=== PATIENT | female | born 1985 | race African-American/Black ===

== ENCOUNTER → 2019-10-07 | Emergency (ER) | payer MEDICAID, OTHER ==
[~2019-10-07] VITALS: Ht 170.2 cm; Wt 63.5 kg
[~2019-10-07] MED LIST: ASPirin 81 mg TAB PO ONE
[2019-10-07 13:09] LABS: Amphetamine Screen, Urine NEGATIVE (NEGATIVE); Barbiturate Scree,Urine NEGATIVE (NEGATIVE); Benzodiazephine Screen, Urine NEGATIVE (NEGATIVE); Cannabinoid Screen, Urine NEGATIVE (NEGATIVE); Cocaine Screen, Urine NEGATIVE (NEGATIVE); Opiate Scree,Urine NEGATIVE (NEGATIVE); Phencyclidine Screen, Urine NEGATIVE (NEGATIVE)
[2019-10-07 13:11] VITALS: BP 106/66
[2019-10-07 13:17] LABS: Urine Bacteria FEW /hpf (None Seen); Urine Blood Negative /uL (Negative); Urine Hyaline Cast FEW /lpf (0 - 2); Urine Mucus FEW (None Seen); Urine WBC 26 /hpf (0 - 5)
[2019-10-07 13:20] LABS: Alcohol, Urine < 3.0 mg/dL (0-10)
[2019-10-07 13:37] LABS: Basophils # (auto) 0 10 ^3/uL (0-0.2); Basophils % (auto) 0.6 % (0.0-2.0); Eosinophils # (auto) 0.1 10 ^3/uL (0-0.8); Eosinophils % (auto) 2.1 % (0.0-7.0); Hemoglobin 14.7 g/dL (12.2-16.2); Lymphocytes % (auto) 44.1 % (10.0-50.0); Mean Corpuscular Hemoglobin 31.3 pg (28.0-32.0); Mean Corpuscular Hgb Conc. 33.4 g/dL (32.0-36.0); Mean Corpuscular Volume 93.5 fL (80.0-100.0); Monocytes # (auto) 0.5 10 ^3/uL (0-1.3); Monocytes % (auto) 12.2 % (0.0-12.0); Neutrophils # (auto) 1.8 10 ^3/uL (1.6-8.6); Nucleated Red Blood Cells % 0.1 %; Platelet Count (auto) 266 10^3/uL (140-450); Red Cell Distribution Width 12.7 % (11.8-14.3); White Blood Cell 4.5 10^3/uL (4.4-10.8)
[2019-10-07 13:52] LABS: Albumin 3.8 g/dL (3.4-5.0); Anion Gap 4 (5-15); Blood Urea Nitrogen 12 mg/dL (7-18); Calcium 8.6 mg/dL (8.5-10.1); Carbon Dioxide 25 mmol/L (21-32); Chloride 110 mmol/L (98-107); Glucose 80 mg/dL (74-106); Potassium 3.9 mmol/L (3.5-5.1); Sodium 139 mmol/L (136-145)
[2019-10-07 13:58] LABS: Alanine Aminotransferase 20 U/L (13-56); Alkaline Phosphatase 68 U/L (45-117); Aspartate Aminotransferase 13 U/L (15-37); BUN/Creatinine Ratio 14.8; Bilirubin, Total 0.3 mg/dL (0.2-1.0); GFR African American 105 mL/min; GFR Non-African American 87 mL/min; Total Protein 7.1 g/dL (6.4-8.2)
== END | disposition home or self-care (01) ==
LOC: ER 12:10
DX: K29.70 Gastritis, unspecified, without bleeding (principal); N39.0 Urinary tract infection, site not specified; R07.9 Chest pain, unspecified; K21.9 Gastro-esophageal reflux disease without esophagitis; F17.210 Nicotine dependence, cigarettes, uncomplicated
CPT/HCPCS: 36415; 71046; 80053; 80307; 81001; 84484; 85025; 85379; 93005

== ENCOUNTER 2023-10-31 17:40 | Emergency (ER) | payer MEDICAID, OTHER ==
[~2023-10-31] VITALS: Ht 170.2 cm; Wt 98.1 kg
[2023-10-31] MEDS: ACETAMINOPHEN 325 MG TAB PO ONE (19:30)
[2023-10-31 19:33] VITALS: BP 112/64; PULSE 68; RESP 17; TEMP 98.5; O2SAT 99
== END 2023-10-31 19:39 | disposition home or self-care (01) ==
LOC: ER 17:40
DX: G56.02 Carpal tunnel syndrome, left upper limb (principal); M77.9 Enthesopathy, unspecified
CPT/HCPCS: 29125

== ENCOUNTER 2024-03-24 10:49 | Emergency (ER) | payer MEDICAID ==
[~2024-03-24] VITALS: Ht 170.2 cm; Wt 98.8 kg
--- NOTE | 2024-03-24 11:58 | DVH ---
PROCEDURE: Left knee radiographs. INDICATION: FALL TECHNIQUE: 3 views of the left knee were obtained. COMPARISON: None FINDINGS: There is no evidence of fracture or dislocation. Joint spaces are maintained. The soft tis sues are unremarkable. IMPRESSION: 1. No fracture or dislocation.
--- NOTE | 2024-03-24 12:01 | DVH ---
CLINICAL INDICATION: Trauma, pain FALL TECHNIQUE: XY R ANKLE 3 VIEW Comparison: None FINDINGS/IMPRESSION: : Minimally displaced fracture of the distal tibia/ medial malleolus. Subcentimeter ossific density at the lateral process of the talus suggestive of a subtle avulsion inj ury. Ossific density is present at the dorsal aspect of the navicular seen on lateral view only suggestive of an age indeterminate fracture. Nonemergent MRI can be obtained to further evaluate if clinically indicated. Ankle mortise intact.
[2024-03-24 12:34] VITALS: BP 102/69; PULSE 75; RESP 16; TEMP 98; O2SAT 97
--- NOTE | 2024-03-24 13:20 | ED.PDOC ---
Musculoskeletal HPI Comments A 39 YEAR OLD FEMALE PRESENTS TO THE ED WITH COMPLAINT OF LEFT KNEE PAIN RIGHT ANKLE PAIN STATUS POST FALL. PATIENT STATES SHE ACCIDENTALLY FELL AND TWISTED HER RIGHT ANKLE AND HIT HER LEFT KNEE 2 DAYS AGO. PATIENT REPORTS SHE IS NOW EXPERIENCING RIGHT ANKLE PAIN WITH SWELLING AND LEFT KNEE PAIN THAT IS WORSE WITH MOVEMENT. PATIENT DENIES HEAD INJURY, NECK INJURY, LOC, FEVER, CHILLS, SHORTNESS OF BREATH, CHEST PAIN, ABDOMINAL PAIN, NAUSEA, VOMITING, HEADACHE, OR OTHER COMPLAINTS. NO OTHER SYMPTOMS OR MODIFYING FACTORS AT THIS TIME. PATIENT IS ALERT, ORIENTED X 4, AND HAS STEADY GAIT. Chief Complaint: Lower Extremity Time Seen by MD: 11:17 Primary Care Provider: [facility] Reviewed Notes: Nurses Notes, Medications, Allergies Allergies: Coded Allergies: NO KNOWN ALLERGIES (Unverified , 10/07/19) Home Meds Active Scripts Acetaminophen (Tylenol Extra Strength Fo) 500 Mg Tab, 1000 MG PO BID, #30 TAB Prov:KIKEABDIRASHID Stack 03/24/24 Information Source: Patient Mode of Arrival: Ambulatory Location: Left, Right Extremity Location: Ankle (RIGHT ANKLE), Knee (LEFT KNEE) Timing: Days Prehospital treatment: None Severity: Moderate Able to Move Extremity: Yes Bear Weight: Fully Pain: Moderate Mechanism: Twisting Circumstances: Fall Onset of Symptoms: After Trauma Symptoms: Swelling, Pain DVT Risk Factors: NONE Last Tetanus: Unknown Associated signs and symptoms: Knee pain, Ankle pain Past Medical History PAST MEDICAL HISTORY: GERD Surgical History: Denies all surgeries TECHNOLOGY INFUSION SPECIALIST History: No Pertinent TECHNOLOGY INFUSION SPECIALIST History Family History Family History: Reviewed,noncontributory to illness, Family hx of DM, Family hx of Cancer, Family hx of HTN Social History Smoker: Cigarettes Alcohol: Denies ETOH Use Drugs: Denies Drug Use Lives In: Home Constitutional: denies: chills, diaphoresis, fatigue, fever, malaise, sweats, weakness, others EENTM: denies: blurred vision, double vision, ear bleeding, ear discharge, ear drainage, ear pain, ear ringing, eye pain, eye redness, hearing loss, mouth pain, mouth swelling, nasal discharge, nose bleeding, nose congestion, nose pain, photophobia, tearing, throat pain, throat swelling, voice changes, others Respiratory: denies: cough, hemoptysis, orthopnea, SOB at rest, shortness of breath, SOB with excertion, stridor, wheezing, others Cardiovascular: denies: chest pain, dizzy spells, diaphoresis, Dyspnea on exertion, edema, irregular heart beat, left arm pain, lightheadedness, palpitat ions, PND, syncope, others Gastrointestinal: denies: abdomen distended, abdominal pain, blood streaked bow els, constipated, diarrhea, dysphagia, difficulty swallowing, hematemesis, melena, nausea, poor appetite, poor fluid intake, rectal bleeding, rectal pain, vomiting, others Genitourinary: denies: abnormal vagina bleeding, burning, dyspareunia, dysuria, flank pain, frequency, hematuria, incontinence, pain, , vagina discharge, urgency, others Neurological: denies: dizziness, fainting, headache, left sided numbness, left sided weakness, numbness, paresthesia, pre-existing deficit, right sided numbness, right sided weakness, seizure, speech problems, tingling, tremors, weakness, others Musculoskeletal: reports: joint pain, joint swelling, others (RIGHT ANKLE PAIN AND SWELLING, LEFT KNEE PAIN); denies: back pain, gout, muscle pain, muscle stiffness, neck pain Integumetry: denies: bruises, change in color, change in hair/nails, dryness, laceration, lesions, lumps, rash, wounds, others Allergic/Immunocompromised: denies: Difficulty Healing, Frequent Infections, Hives, Itching, others Hematologic/Lymphatic: denies: anemia, blood clots, easy bleeding, easy bruising, swollen glands, others Endocrine: denies: excessive hunger, excessive sweating, excessive thirst, excessive urination, flushing, intolerance to cold, intolerance to heat, unexplained weight gain, unexplained weight loss, others Psychiatric: denies: anxiety, bipolar disorder, depression, hopeless, panic disorder, schizophrenia, sleepless, suicidal, others All Other Systems: Reviewed and Negative Physical Exam General Appearance: No Apparent Distress, Obese HEENT: Normal ENT Inspection, PERRL/EOMI, Pharynx Normal, TMs Normal Neck: Full Range of Motion, Non-Tender, Normal, Normal Inspection Respiratory: Chest Non-Tender, Lungs Clear, No Accessory Muscle Use, No Respiratory Distress, Normal Breath Sounds Cardiovascular: No Edema, No JVD, No Murmur, No Gallop, Normal Peripheral Pulses, Regular Rate/Rhythm Breast Exam: Deferred Gastrointestinal: No Organomegaly, Non Tender, No Pulsatile Mass, Normal Bowel Sounds, Soft Genitalia: Deferred Pelvic: Deferred Rectal: Deferred Extremities: Decreased range of motion, No calf tenderness, Normal capillary refill, No pedal edema, Swelling (BONY TENDERNESS AND SWELLING ON RIGHT ANKLE, NO DEFORMITY. ), Tender (ON LEFT KNEE, NO BONY TENDERNESS, SWELLING AND DEFORMITY. ) Musculoskeletal : Apperance: Normal Neurologic: Alert, sack keeper II-XII nml as Tested, No Motor Deficits, Normal Affect, Normal Mood, No Sensory Deficits Cerebellar Function: Normal Reflexes: Normal Skin: Dry, Normal Color, Warm Peripheral Pulses: 2+ carotid (R), 2+ carotid (L), 2+ dorsalis pedis (R), 2+ dorsalis pedis (L) Lymphatic: No Adenopathy Was a procedure done? Was a procedure done?: No Differential Diagnosis EXT Differential Diagnosis: Fracture, Sprain, Dislocation, Contusion, Strain, Bursitis X-Ray, Labs, Meds, VS Vital Signs Date Time Temp Pulse Resp B/P (MAP) Pulse Ox O2 Delivery O2 Flow Rate FiO2 03/24/24 12:34 98.0 75 16 102/69 (80) 97 98.0 03/24/24 12:34 75 16 97 Room Air 03/24/24 11:11 98.0 75 16 102/69 (80) 97 Current Medications Medications (Trade) Dose Ordered Sig/Liam Route Start Time Stop Time Status Last Admin Acetaminophen (Tylenol Tablet Or Capsule) 1,000 mg ONCE ONCE PO 03/24/24 13:30 03/24/24 13:33 DC 03/24/24 13:31 PROCEDURE: Left knee radiographs. INDICATION: FALL TECHNIQUE: 3 views of the left knee were obtained. COMPARISON: None FINDINGS: There is no evidence of fracture or dislocation. Joint spaces are maintained. The soft tissues are unremarkable. IMPRESSION: 1. No fracture or dislocation. ATED BY: CHARISSE ALMEIDA MD DICTATED DATE/TIME: 03/24/241155 SIGNED BY: CHARISSE ALMEIDA MD SIGNED DATE/TIME: 03/24/241155 CC: CLINICAL INDICATION: Trauma, pain FALL TECHNIQUE: XY R ANKLE 3 VIEW Comparison: None FINDINGS/IMPRESSION: : Minimally displaced fracture of the distal tibia/ medial malleolus. Subcentimeter ossific density at the lateral process of the talus suggestive of a subtle avulsion injury. Ossific density is present at the dorsal aspect of the navicular seen on lateral view only suggestive of an age indeterminate fracture. Nonemergent MRI can be obtained to further evaluate if clinically indicated. Ankle mortise intact. ATED BY: GERRY BERGER MD DICTATED DATE/TIME: 03/24/24 115 SIGNED BY: GERRY BERGER MD SIGNED DATE/TIME: 03/24/24 115 CC: X-Ray, Labs, Meds, VS Comment EXTERNAL MEDICAL RECORDS REVIEWED: [NONE] INDEPENDENT HISTORIANS: [NONE] SOCIAL DETERMINANTS OF HEALTH: [NONE] LABS ORDERED: NONE REVIEWED AND INTERPRETED RESULTS: NONE IMAGING ORDERED: XR KNEE LT, XR ANKLE LT TREATMENTS ORDERED: ANKLE STIRRUP SPLINT APPLIED TO PATIENT'S LEFT ANKLE. CRUTCHES GIVEN. TYLENOL 1GM PO PROCEDURES PERFORMED: NONE CRITICAL CARE TIME: NONE I HAVE DISCUSSED THE PATIENT WITH THE ATTENDING PHYSICIAN DR. MA AND HE AGREES WITH THE PATIENT'S PLAN OF CARE AND DISPOSITION. BASED ON HISTORY OF PRESENT ILLNESS, AND PHYSICAL EXAM, PATIENT WILL BE DISCHARGED HOME. DISCUSSED PLAN FOR DISCHARGE HOME WITH RX [IBUPROFEN 800 MG]. MEDICATION WARNINGS GIVEN. SHARED DECISION MAKING: PATIENT INSTRUCTED TO FOLLOW UP WITH PRIMARY CARE PROVIDER IN 1-2 DAYS FOR RE-EVALUATION OF SYMPTOMS. PATIENT VERBALIZES UNDERSTANDING TO RETURN TO ED FOR NEW OR WORSENING SYMPTOMS OR IF FOLLOW UP WITH PCP CANNOT BE OBTAINED. PATIENT FEELS COMFORTABLE GOING HOME AT THIS TIME. ALL QUESTIONS ADDRESSED AT TIME OF DISCHARGE. Images Reviewed?: Images reviewed and evaluated by me Time of 1ST Reevaluation: 13:34 Reevaluation 1ST: Improved Patient Education/Counseling: Diagnosis, Treatment, Need For Follow Up Family Education/Counseling: Diagnosis, Treatment, Need For Follow Up Medical Screening: No EMC Exist At This Time Departure 1 Departure Time of Disposition: 13:34 Impression: Primary Impression: Fracture of medial malleolus, right, closed Qualified Codes: S82.54XA - Nondisplaced fracture of medial malleolus of right tibia, initial encounter for closed fracture Additional Impressions: Sprain of left knee Qualified Codes: S83.92XA - Sprain of unspecified site of left knee, initial encounter Status post fall Disposition: HOME / SELF CARE / HOMELESS Condition: Stable Additional Instructions: FOLLOW-UP WITH PCP IN 1 TO 2 DAYS FOR REFERRAL TO [facility]. TAKE MEDICATIONS PRESCRIBED. RETURN TO ED FOR ANY NEW OR WORSENING SYMPTOMS. e-Prescriptions Acetaminophen (Tylenol Extra Strength Fo) 500 Mg Tab 1000 MG PO BID, #30 TAB Prov: ABDIRASHID STOKES 03/24/24 Discharged With: Self, Relative Critical Care Note Critical Care Time?: No Stability Stability form required: No I personally scribed for ABDIRASHID STOKES ([email or web address]) on 03/24/24 at 13:20. Electronically submitted by Ivan Mae ([email or web address]). I personally scribed for GREGORIA MA MD ([email or web address]) on 03/24/24 at 14:43. Electronically submitted by Ivan Mae ([email or web address]). ABDIRASHID STOKES Mar 24, 2024 13:20 GREGORIA MA MD Mar 24, 2024 14:43
[2024-03-24] MEDS ORDERED: ACET-1304 PO (13:28)
[2024-03-24] MEDS: ACETAMINOPHEN 500 MG TAB or CAP PO ONE (13:31)
== END 2024-03-24 13:33 | disposition home or self-care (01) ==
LOC: ER 10:49
DX: S82.51XA Displaced fracture of medial malleolus of right tibia, initial encounter for closed fracture (principal); S83.92XA Sprain of unspecified site of left knee, initial encounter; K21.9 Gastro-esophageal reflux disease without esophagitis; F17.210 Nicotine dependence, cigarettes, uncomplicated; Z79.899 Other long term (current) drug therapy; W18.39XA Other fall on same level, initial encounter; Y93.89 Activity, other specified; Y92.89 Other specified places as the place of occurrence of the external cause; Y99.8 Other external cause status
CPT/HCPCS: 29515; 73562; 73610

== ENCOUNTER 2024-08-09 16:29 | Emergency (ER) | payer MEDICAID ==
[~2024-08-09] VITALS: Ht 170.2 cm; Wt 101.7 kg
[~2024-08-09 16:29] MED LIST changes: +ACET-1304 PO; -ASPirin 81 mg TAB PO ONE
[2024-08-09] MEDS ORDERED: CEPH500C PO (17:04)
[2024-08-09] MEDS ORDERED: IBUP-1455 PO (17:04)
--- NOTE | 2024-08-09 17:05 | ED.PDOC ---
History of Present Illness HPI Comments 39-year-old female complaining of left breast pain. Patient states the pain has been going on for 2-3 weeks. States she was seen by PCP and had ultrasound ordered on the . She was report present. Report does state fibrocystic breast tissue in bilateral breasts. No signs of malignancy. Patient states over the last few days the left-sided is becoming more painful. No redness no swelling no fever no chills. Chief Complaint: Breast pain Time Seen by MD: 16:39 Primary Care Provider: ARASELI Reviewed Notes: Nurses Notes Allergies: Coded Allergies: NO KNOWN ALLERGIES (Unverified , 10/07/19) Home Meds Active Scripts Acetaminophen (Tylenol Extra Strength Fo) 500 Mg Tab, 1000 MG PO BID, #30 TAB Prov:ABDIRASHID STOKES 03/24/24 Information Source: Patient Mode of Arrival: Ambulatory Past Medical History PAST MEDICAL HISTORY: GERD Surgical History: Denies all surgeries OPERATIONS RESEARCH ANALYST History: No Pertinent OPERATIONS RESEARCH ANALYST History Family History Family History: Reviewed,noncontributory to illness, Family hx of DM, Family hx of Cancer, Family hx of HTN Social History Smoker: Cigarettes Alcohol: Denies ETOH Use Drugs: Denies Drug Use Lives In: Home Constitutional: denies: chills, diaphoresis, fatigue, fever, malaise, sweats, weakness, others EENTM: denies: blurred vision, double vision, ear bleeding, ear discharge, ear drainage, ear pain, ear ringing, eye pain, eye redness, hearing loss, mouth pain, mouth swelling, nasal discharge, nose bleeding, nose congestion, nose pain, photophobia, tearing, throat pain, throat swelling, voice changes, others Respiratory: denies: cough, hemoptysis, orthopnea, SOB at rest, shortness of breath, SOB with excertion, stridor, wheezing, others Cardiovascular: denies: chest pain, dizzy spells, diaphoresis, Dyspnea on exertion, edema, irregular heart beat, left arm pain, lightheadedness, palpitations, PND, syncope, others Gastrointestinal: denies: abdomen distended, abdominal pain, blood streaked bowels, constipated, diarrhea, dysphagia, difficulty swallowing, hematemesis, melena, nausea, poor appetite, poor fluid intake, rectal bleeding, rectal pain, vomiting, others Genitourinary: denies: abnormal vagina bleeding, burning, dyspareunia, dysuria, flank pain, frequency, hematuria, incontinence, pain, , vagina discharge, urgency, others Neurological: denies: dizziness, fainting, headache, left sided numbness, left sided weakness, numbness, paresthesia, pre-existing deficit, right sided numbness, right sided weakness, seizure, speech problems, tingling, tremors, weakness, others Musculoskeletal: denies: back pain, gout, joint pain, joint swelling, muscle pain, muscle stiffness, neck pain, others Integumetry: denies: bruises, change in color, change in hair/nails, dryness, laceration, lesions, lumps, rash, wounds, others Allergic/Immunocompromised: denies: Difficulty Healing, Frequent Infections, Hives, Itching, others Physical Exam General Appearance: No Apparent Distress, Normal HEENT: Normal ENT Inspection, Pharynx Normal, TMs Normal Neck: Full Range of Motion, Non-Tender, Normal, Normal Inspection Respiratory: Chest Non-Tender, Lungs Clear, No Accessory Muscle Use, No Respiratory Distress, Normal Breath Sounds Cardiovascular: No Edema, No JVD, No Murmur, No Gallop, Normal Peripheral Pulses, Regular Rate/Rhythm Breast Exam: (L) Tenderness, Other (Symmetrical, no dimpling, no discharge.) Gastrointestinal: No Organomegaly, Non Tender, No Pulsatile Mass, Normal Bowel Sounds, Soft Genitalia: Deferred Pelvic: Deferred Rectal: Deferred Extremities: No calf tenderness, Normal capillary refill, Normal inspection, Normal range of motion, Non-tender, No pedal edema Musculoskeletal : Apperance: Normal Neurologic: Alert, records and information manager II-XII nml as Tested, No Motor Deficits, Normal Affect, Normal Mood, No Sensory Deficits Cerebellar Function: Normal Reflexes: Normal Skin: Dry, Normal Color, Warm Lymphatic: No Adenopathy Was a procedure done? Was a procedure done?: No Differential Dx Considerations may include: Mastitis, breast CA, Paget's disease X-Ray, Labs, Meds, VS Vital Signs Date Time Temp Pulse Resp B/P (MAP) Pulse Ox O2 Delivery O2 Flow Rate FiO2 08/09/24 16:35 98.1 81 16 113/79 (90) 97 98.1 X-Ray, Labs, Meds, VS Comment Imaging: X-rays and CT scans were reviewed and interpreted by this provider, im aging shows no fractures and no pathological disease. Pending radiology review. Laboratory: Labs reviewed and interpreted by this provider. No significant abnormalities noted. Patient has prior medical visits reviewed. Med reconciliation performed Vital signs reviewed Time of 1ST Reevaluation: 17:04 Reevaluation 1ST: Improved Patient Education/Counseling: Diagnosis, Treatment, Need For Follow Up (Follow up in the emergency department in the next 24-48 hours if symptoms worsen. It was advised to follow up with your primary care doctor in the next 3-4 days for further evaluation.) Family Education/Counseling: Diagnosis Departure 1 Departure Time of Disposition: 17:03 Impression: Primary Impression: Fibrocystic breast changes Qualified Codes: N60.12 - Diffuse cystic mastopathy of left breast Additional Impression: Mastitis Disposition: 01 HOME / SELF CARE / HOMELESS Condition: Fair e-Prescriptions Cephalexin Monohydrate (Cephalexin) 500 Mg Cap 1 CAP PO TID for 7 Days, #21 CAP Prov: RAJEEV BASSETT 08/09/24 Ibuprofen Micronized (Ibuprofen) 800 Mg Tab 800 MG PO TID PRN, #40 TAB Prov: RAJEEV BASSETT 08/09/24 Discharged With: Self Critical Care Note Critical Care Time?: No Stability Stability form required: No Heart Score Heart Score: Heart Score Response (Comments) Value History N/A 0 EKG N/A 0 Age N/A 0 Risk Factors N/A 0 Troponin N/A 0 Total 0 RAJEEV BASSETT August 09, 2024 17:05
[2024-08-09 17:36] VITALS: BP 118/75; PULSE 69; RESP 20; TEMP 98; O2SAT 99
== END 2024-08-09 17:35 | disposition home or self-care (01) ==
LOC: ER 16:29
DX: N60.12 Diffuse cystic mastopathy of left breast (principal); N61.0 Mastitis without abscess; F17.210 Nicotine dependence, cigarettes, uncomplicated